=== PATIENT | female | born 1960 | race Asian ===

== ENCOUNTER 2020-03-27 21:32 | Emergency (ER) | payer SELFPAY ==
[~2020-03-27] VITALS: Ht 149.9 cm; Wt 74.4 kg
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
[2020-03-27] MEDS ORDERED: HYDROCODONE/APAP 5/325MG 1 EACH TABLET PO ONE (22:00)
[2020-03-27] MEDS ORDERED: HYDROCODONE/APAP 5/325MG 1 EACH TABLET ONE (22:27)
--- NOTE | 2020-03-27 22:52 | NUR ---
Meera clark in [facility] - 03/27/20 at 2255 by MARIO PT UNABLE TO PROVIDE URINE SAMPLE AT THIS TIME
--- NOTE | 2020-03-27 23:37 | NUR ---
Patient discharged to home in stable condition. Written and verbal after care instructions given. Patient verbalizes understanding of instruction. Pt ambulatory with a steady gait
[2020-03-27 23:43] VITALS: BP 143/82
== END 2020-03-27 23:44 | disposition home or self-care (01) ==
LOC: ER 21:32
DX: S52.531A Colles' fracture of right radius, initial encounter for closed fracture (principal); S00.81XA Abrasion of other part of head, initial encounter; I10 Essential (primary) hypertension; E78.5 Hyperlipidemia, unspecified; V49.49XA Driver injured in collision with other motor vehicles in traffic accident, initial encounter; Y93.89 Activity, other specified; Y92.488 Other paved roadways as the place of occurrence of the external cause; Y99.8 Other external cause status
CPT/HCPCS: 73090-TC; 73110